=== PATIENT | male | born 1965 | race Caucasian/White ===

== ENCOUNTER 2016-06-02 07:12 | Outpatient (CLI) ==
[2016-06-02 07:55] LABS: EOSINOPHILS # (AUTO) 0.1 K/ul (0.0-0.7); EOSINOPHILS % (AUTO) 4.2 % (0.0-7.0); HEMATOCRIT 39.3 % (42.0-52.0); HEMOGLOBIN 13.6 g/dl (14.0-18.0); LYMPHOCYTES # (AUTO) 0.6 K/uL (0.60-3.4); LYMPHOCYTES % (AUTO) 29.3 (10.0-50.0); MEAN CORPUSCULAR HEMOGLOBIN 31.1 pg (27.0-31.0); MEAN CORPUSCULAR HGB CONC 34.6 (31.8-35.4); MEAN CORPUSCULAR VOLUME 89.7 fl (80.0-94.0); MONOCYTES # (AUTO) 0.2 K/uL (0.4-2.0); MONOCYTES % (AUTO) 7.9 (0-10); NEUTROPHILS # (AUTO) 1.1 K/ul (2.0-6.9); NEUTROPHILS % (AUTO) 58.6; RED BLOOD COUNT 4.38 10^6/ul (4.70-6.10)
[2016-06-02 08:04] LABS: ALBUMIN 3.3 g/dL (3.4-5.0); ALBUMIN/GLOBULIN RATIO 1.03; ANION GAP 11.9; BILIRUBIN,TOTAL 2.97 mg/dL (0.00-1.20); BUN/CREATININE RATIO 14.28; CALCIUM 8.9 mg/dL (8.2-10.2); CREATININE 1.4 mg/dL (0.60-1.10); POTASSIUM 3.9 mmol/L (3.5-5.1); TOTAL PROTEIN 6.5 g/dL (6.4-8.2)
[2016-06-02 08:06] LABS: WHITE BLOOD COUNT 1.91 K/ul (4.2-10.2)
[2016-06-02 08:07] LABS: PLATELET COUNT 24 10^3/uL (140-440)
== END 2016-06-02 07:13 | disposition home or self-care (01) ==
LOC: LAB 07:12
PROVIDERS: ATTEND Internal Medicine Gastroenterology
DX: Z94.4 Liver transplant status (principal); Z79.899 Other long term (current) drug therapy
CPT/HCPCS: 36415; 80053; 80197; 82977; 85025

== ENCOUNTER 2016-06-10 11:00 | Outpatient (RCR) ==
--- NOTE | 2016-05-27 14:32 | RS.OPPTEV2 ---
Date of Note: 05/27/16 Visit #: 1 Date of Evaluation: 05/27/16 Payer Source: Insurance Date of Onset/Injury/Change in Status: 08/19/15 Surgery Performed?: Yes (Left knee scope for meniscal tear) Date of Procedure: 08/19/15 Treatment Diagnosis: Left knee effusion, left knee pain, knee joint stiffness History of Condition/Mechanism of Injury:: Patient reports injurying his knee while golfing in March of last year. States he did not have insurance available to have surgery until August. Reports no prior surgeries to this knee. Pt's job requires him to stand and walk for 10 hr/day. He is having difficulty performing his job due to pain and edema. He has been unable to play golf for a yr due to increased pain when attempting. He states the knee has began to give away now and it has caused him to fall twice in one night last Prior Level of Function.....Patient was independent with: ADL's, Self Care, Work /Vocation, Caregiving, Ambulation/Mobility, Community Integration/Access Functional Limitations: ADL's, Sitting, Standing, Bending, Squatting, Ambulation , Community Access/Integration Treatment Side (optional): Left Medical History Medical History: Arthritis Surgical History Comments:: Liver transplant 2006 Hx Home Medications: Lortab, Lasix Pain Assessment - Pain Description Pain Location: left knee Pain Description: Burning, Throbbing Pain Description: With WBing immediately upon standing Current Pain Intensity: 5-6/10 Worst Pain Intensity: 10/10 Functional Outcome Measure LE Functional Scale: 17 - G Codes & Severity Modifier G Codes & Modifier: na Source of G Code score: na Observation - Observation Inspection: Left knee edema (min-mod) and joint is warm. Gait - Gait Pattern General Gait Pattern Observation: Antalgic Gait, Uneven Ronel, Decrease Weight Bear (L), Decrease Weight Shift (L), Short Stance Time (R) (Pt limits knee flexion for fear of it giving away. Crutch or SC has been recomended for support.), Short Stance Time (L) General Range of Motion: In 90/90 left ham length -28 deg and left -20 deg - Left Knee ROM Left Knee Extension: -6 degrees Left Knee Flexion: 125 (degrees) Knee ROM Limitations: Soft Tissue Tightness, Pain Comments: Min patellar mobility - Left Knee Strength Left Knee Extension: 4- Good- Left Knee Flexion: 4 Good Palpation Palpation Findings: Tenderness (Above and below the knee joint) Balance - Standing Balance Static Standing Balance: Normal Dynamic Standing Balance: Good Interventions - Exercise/Activities/Manual Therapy Exercises/Activities: Pt and PT reviewed his previous HEP of QS and SLR only today. He had pain with all exercises. He is fearful of ex causing pain to increase. Total minutes of Exercise: 10 Manual Therapy: na - Charges Total Direct Minutes: 10 Total Treatment Time: 45 Procedures billed for this date of service:: PT eval (medium) & ex Assessment Assessment: Left knee pain, decreased ROM and LLE weakness greatest in the quads with gait deficits. Patient Education: Education of diagnosis, Body/Joint mechanics, Home Exercise Program, Activity Modification, Education of Plan of Care Rehab Potential: Good Short Term Goals Goal #1: Pt independent with hamstring stretching. Goal to be met by: 06/05/16 Goal #2: Left quad strength 4+/5. Goal to be met by: 06/05/16 Field Service Representative Goals Goal #1: Pt knows HEP and to continue exercises after D/C from therapy. Goal to be met by: 06/12/16 Goal #2: Pt I with crutch or other AD to improve gait pattern and safety. Goal to be met by: 06/12/16 Plan - Treatment to be Provided Procedures: Therapeutic Exercises, Therapeutic Activity, Gait Training, Manual Therapy, Splinting/Taping, Patient Education Modalities: Electrical Stimulation, Ultrasound/Phonophoresis, Class IV Laser, Cryotherapy - Treatment Plan Frequency: 2 X week Duration: 2 weeks ORDER # VISITS AND/OR THROUGH DATE: 06/12/2016 - Treatment Code (1) Left knee pain Qualifiers: Chronicity: chronic Qualified Description: Chronic pain of left knee Qualifier Code(s): (M25.562) Pain in left knee, (G89.29) Other chronic pain (2) Muscle weakness (generalized) Comments: M62.81
--- NOTE | 2016-05-28 12:09 | RS.OPPTDN ---
Subjective Date of Note: 05/28/16 Visit #: 2 Date of Evaluation: 05/27/16 Payer Source: Insurance Treatment Diagnosis: Left knee effusion, left knee pain, knee joint stiffness Current Subjective/complaints:: Patient reports the L knee swells and increases in pain as the work day progresses.He uses ice frequently at home. Pain Assessment - Pain Description Pain Location: left knee Pain Description: Burning, Throbbing Pain Description: With WBing immediately upon standing Current Pain Intensity: 5-6/10 Other Comments regarding Pain:: 0 at rest only Interventions - Exercise/Activities/Manual Therapy Exercises/Activities: 30 mins. total ,multiple reps. of quad sets,SLR's,LAQ's, hip abd/add in supine.Isometrics for quads /hamstrings with knee in terminal extension. Total minutes of Exercise: 30 Manual Therapy: na Total minutes of Manual Therapy: 0 HOME EXERCISE PROGRAM: AP's, Quad sets, heel slides, SLR, SAQ's. SLR/VMO - Charges Total Direct Minutes: 30 Total Treatment Time: 30 Procedures billed for this date of service:: ex 2 Assessment: Patient reportts fatigue only today with exercises,He does report after he is at work around 4 hrs., the swelling occurs and the pain elevates to severe for the rest of the day.He enters clinic with minimal knee flexion on the L ,as he feels the knee at times feels unstable. He is very attentive to recommendations for the care of his knee. Patient Education: Education of diagnosis, Body/Joint mechanics, Home Exercise Program, Home Safety, Activity Modification, Education of Plan of Care Patient demonstrates compliance with HEP?: Yes Short Term Goals Goal #1: Pt independent with hamstring stretching. Goal to be met by: 06/05/16 Goal #2: Left quad strength 4+/5. Goal to be met by: 06/05/16 Goal #3: Left quad strength 4+/5. Goal to be met by: 10/25/15 Audio Visual Equipment Rental Clerk Goals Goal #1: Pt knows HEP and to continue exercises after D/C from therapy. Goal to be met by: 06/12/16 Progress towards goal: Progressing Goal #2: Pt I with crutch or other AD to improve gait pattern and safety. Goal to be met by: 06/12/16 Goal #3: Pt able to perform all home and work activities w/ minimal to no knee pain. Goal to be met by: 11/15/15 Goal #4: Pt to tolerate ambulation long distances without pain or gait deviation . Goal to be met by: 11/15/15 Plan PLAN OF CARE EXPIRES ON:: 06/12/16 ORDER # VISITS AND/OR THROUGH DATE: 06/12/2016 PLAN: Continue Plan of Care
--- NOTE | 2016-06-03 14:29 | RS.OPPTDN ---
Subjective Date of Note: 06/03/16 Visit #: 3 Date of Evaluation: 05/27/16 Payer Source: Insurance Treatment Diagnosis: Left knee effusion, left knee pain, knee joint stiffness Current Subjective/complaints:: Patient reports the knee feels about the same, but he reports exercising the knee 4 times per day,twice in the morning ,and twice later in the day.He enters clinic with antalgic gait. Pain Assessment - Pain Description Pain Location: left knee Pain Description: Burning, Throbbing Current Pain Intensity: 5-6/10 Interventions - Exercise/Activities/Manual Therapy Exercises/Activities: 30 mins. total ,multiple reps. of quad sets,SLR's,LAQ's, hip abd/add in supine.Isometrics for quads /hamstrings with knee in terminal extension. Total minutes of Exercise: 30 Manual Therapy: na Total minutes of Manual Therapy: 0 HOME EXERCISE PROGRAM: AP's, Quad sets, heel slides, SLR, SAQ's. SLR/VMO - Charges Total Direct Minutes: 30 Total Treatment Time: ex 2 Procedures billed for this date of service:: ex 2 Assessment: Patient attempted SAQ,but reports increased pain with each rep., progressed to exercises with knee into extension,to avoid pain .He continues to report increased pain as weight bearing activities increase.He has moderate edema in the L knee today. Patient Education: Education of diagnosis, Body/Joint mechanics, Home Exercise Program, Home Safety, Activity Modification, Education of Plan of Care Patient demonstrates compliance with HEP?: Yes Short Term Goals Goal #1: Pt independent with hamstring stretching. Goal to be met by: 06/05/16 Goal #2: Left quad strength 4+/5. Goal to be met by: 06/05/16 Progress towards Goal:: No Change Goal #3: Left quad strength 4+/5. Goal to be met by: 10/25/15 Senior Living Goals Goal #1: Pt knows HEP and to continue exercises after D/C from therapy. Goal to be met by: 06/12/16 Progress towards goal: Progressing Goal #2: Pt I with crutch or other AD to improve gait pattern and safety. Goal to be met by: 06/12/16 Goal #3: Pt able to perform all home and work activities w/ minimal to no knee pain. Goal to be met by: 11/15/15 Progress towards goal: No Change Goal #4: Pt to tolerate ambulation long distances without pain or gait deviation . Goal to be met by: 11/15/15 Progress towards goal: No Change Plan PLAN OF CARE EXPIRES ON:: 06/12/16 ORDER # VISITS AND/OR THROUGH DATE: 06/12/2016 PLAN: Continue Plan of Care
--- NOTE | 2016-06-10 12:06 | RS.OPPTDN ---
Subjective Date of Note: 06/04/16 Visit #: 4 Date of Evaluation: 05/27/16 Payer Source: Insurance Treatment Diagnosis: Left knee effusion, left knee pain, knee joint stiffness Current Subjective/complaints:: Reports feeling more rested today ,has had a good night's sleep.The knee feels about the same.He continues to do his HEP regularly. Pain Assessment - Pain Description Pain Location: left knee Pain Description: Sharp, Dull, Aching, Chronic Current Pain Intensity: not rated today Interventions - Exercise/Activities/Manual Therapy Exercises/Activities: 35 mins. total ,multiple reps. of quad sets,SLR's,LAQ's, hip abd/add in supine.Isometrics for quads /hamstrings with knee in terminal extension. Total minutes of Exercise: 35 Manual Therapy: na Total minutes of Manual Therapy: 0 HOME EXERCISE PROGRAM: AP's, Quad sets, heel slides, SLR, SAQ's. SLR/VMO - Charges Total Direct Minutes: 35 Total Treatment Time: 35 Procedures billed for this date of service:: ex2 Assessment: No significant change today,but continues to be willing to try all aspects of therapy,and achieve highest level of function.His job requires lng periods of being on his feet.He reports using ice frequently at home on a daily basis to control edema. Patient Education: Education of diagnosis, Body/Joint mechanics, Home Exercise Program, Home Safety, Activity Modification, Education of Plan of Care Patient demonstrates compliance with HEP?: Yes Short Term Goals Goal #1: Pt independent with hamstring stretching. Goal to be met by: 06/05/16 (N/A) Goal #2: Left quad strength 4+/5. Goal to be met by: 06/05/16 Progress towards Goal:: No Change Goal #3: Left quad strength 4+/5. Goal to be met by: 10/25/15 Progress towards Goal:: No Change Product Craftsman Goals Goal #1: Pt knows HEP and to continue exercises after D/C from therapy. Goal to be met by: 06/12/16 Progress towards goal: Progressing Goal #2: Pt I with crutch or other AD to improve gait pattern and safety. Goal to be met by: 06/12/16 Progress towards goal: Progressing Goal #3: Pt able to perform all home and work activities w/ minimal to no knee pain. Goal to be met by: 11/15/15 Progress towards goal: No Change Goal #4: Pt to tolerate ambulation long distances without pain or gait deviation . Goal to be met by: 11/15/15 Progress towards goal: No Change Plan PLAN OF CARE EXPIRES ON:: 06/12/16 ORDER # VISITS AND/OR THROUGH DATE: 06/12/2016 PLAN: Continue Plan of Care
--- NOTE | 2016-06-10 15:45 | RS.OPPTDN ---
Subjective Date of Note: 06/10/16 Visit #: 5 Date of Evaluation: 05/27/16 Payer Source: Insurance Treatment Diagnosis: Left knee effusion, left knee pain, knee joint stiffness Current Subjective/complaints:: Patient reports the knee is slightly better today,in regards to pain level,but has difficulty with sit to stand after prolonged riding in a car or sitting at work/home. Pain Assessment - Pain Description Pain Location: left knee Pain Description: Sharp, Dull, Aching, Chronic Pain Description: Sharp pain with WBing immediately upon standing Current Pain Intensity: 310 Interventions - Exercise/Activities/Manual Therapy Exercises/Activities: 45 mins. total ,5 reps. at each level of resistance on leg press with ROM between full knee extension and 20-25 degrees flexion , beginning with 75# ,up to 225# with both LE's.Single leg press with L LE ,05/27 @ 75 #.Ended session with 3/15 reps. using black theraband for hamstring curls.HEP review,including joint protection and pain control. Total minutes of Exercise: 45 Manual Therapy: na Total minutes of Manual Therapy: 0 HOME EXERCISE PROGRAM: AP's, Quad sets, heel slides, SLR, SAQ's. SLR/VMO - Charges Total Direct Minutes: 45 Total Treatment Time: 45 Procedures billed for this date of service:: ex 3 Assessment: Patient tolerates PRE's well today ,but continues to have pain with sit to stand.The PRE's were done in a shortened ROM to protect the knee joint. Patient Education: Education of diagnosis, Body/Joint mechanics, Home Exercise Program, Home Safety, Activity Modification, Education of Plan of Care Patient demonstrates compliance with HEP?: Yes Short Term Goals Goal #1: Pt independent with hamstring stretching. Goal to be met by: 06/05/16 (N/A) Goal #2: Left quad strength 4+/5. Goal to be met by: 06/05/16 Progress towards Goal:: Progressing Goal #3: Left quad strength 4+/5. Goal to be met by: 10/25/15 Progress towards Goal:: Progressing Label Stitcher Goals Goal #1: Pt knows HEP and to continue exercises after D/C from therapy. Goal to be met by: 06/12/16 Progress towards goal: Met Goal #2: Pt I with crutch or other AD to improve gait pattern and safety. Goal to be met by: 06/12/16 Progress towards goal: Partially Met Goal #3: Pt able to perform all home and work activities w/ minimal to no knee pain. Goal to be met by: 11/15/15 Progress towards goal: Progressing Goal #4: Pt to tolerate ambulation long distances without pain or gait deviation . Goal to be met by: 11/15/15 (antalgia increases as the distance increases) Progress towards goal: Progressing Plan PLAN OF CARE EXPIRES ON:: 06/12/16 ORDER # VISITS AND/OR THROUGH DATE: 06/12/2016 PLAN: Plan for Discharge (Review HEP,safety,joint protection at tomorrow's visit.)
== END 2016-06-12 ==
PROVIDERS: ATTEND Orthopaedic Surgery Sports Medicine
DX: M25.562 Pain in left knee (principal); G89.29 Other chronic pain; M62.81 Muscle weakness (generalized)

== ENCOUNTER 2016-10-06 07:01 | Outpatient (CLI) ==
[2016-10-06 07:52] LABS: ALBUMIN 3.4 g/dL (3.4-5.0); ALBUMIN/GLOBULIN RATIO 1.03; ANION GAP 12.1; BILIRUBIN,TOTAL 3.13 mg/dL (0.00-1.20); BUN/CREATININE RATIO 13.44; CREATININE 1.19 mg/dL (0.60-1.10); EOSINOPHILS # (AUTO) 0.1 K/ul (0.0-0.7); EOSINOPHILS % (AUTO) 3.3 % (0.0-7.0); HEMATOCRIT 37.3 % (42.0-52.0); IMMATURE GRANULOCYTE % (AUTO) 0.5 % (0.0-5.0); LYMPHOCYTES # (AUTO) 0.6 K/uL (0.60-3.4); LYMPHOCYTES % (AUTO) 31.1 (10.0-50.0); MEAN CORPUSCULAR HEMOGLOBIN 31.1 pg (27.0-31.0); MEAN CORPUSCULAR HGB CONC 34.9 (31.8-35.4); MEAN CORPUSCULAR VOLUME 89.2 fl (80.0-94.0); MONOCYTES # (AUTO) 0.2 K/uL (0.4-2.0); MONOCYTES % (AUTO) 10.9 (0-10); NEUTROPHILS % (AUTO) 54.2; POTASSIUM 4.1 mmol/L (3.5-5.1); RED BLOOD COUNT 4.18 10^6/ul (4.70-6.10); TOTAL PROTEIN 6.7 g/dL (6.4-8.2)
[2016-10-06 08:21] LABS: PLATELET COUNT 26 10^3/uL (140-440); WHITE BLOOD COUNT 1.83 K/ul (4.2-10.2)
[2016-10-07 08:15] LABS: GAMMA GLUTAMYL TRANSFERASE 135 IU/L (0-65)
== END 2016-10-06 07:02 | disposition home or self-care (01) ==
LOC: LAB 07:01
PROVIDERS: ATTEND Internal Medicine Gastroenterology
DX: Z94.4 Liver transplant status (principal); Z79.899 Other long term (current) drug therapy
CPT/HCPCS: 36415; 80053; 80197; 82977; 85025

== ENCOUNTER 2016-12-11 09:00 | Outpatient (RCR) ==
--- NOTE | 2016-12-10 14:00 | RS.OPPTEV2 ---
Date of Note: 12/09/16 Visit #: 1 Date of Evaluation: 12/09/16 Payer Source: Insurance Treatment Diagnosis: Left knee pain, knee joint stiffness, joint effusion History of Condition/Mechanism of Injury:: Patient reports injurying his knee while golfing in March of 2015. He had left knee arthroscopy in August 2015. He attended therapy following surgery and again this May 2016 for strengthening. He continues to have left knee pain, stiffness, and swelling. He has received 2 different sets of injections, the first was below the knee joint. The most recent injections were into the distal quads. He states those injections helped for about 3-4 weeks, then the knee symptoms returned as before. Prior Level of Function.....Patient was independent with: ADL's, Self Care, Work /Vocation, Caregiving, Ambulation/Mobility, Community Integration/Access Functional Limitations: ADL's, Sitting, Standing, Bending, Squatting, Ambulation , Community Access/Integration Current Subjective/complaints:: Patient reports continued left knee stiffness and aching. States his symptoms are worse in the morning and after any sitting , when he first stands and tries to walk. States the knee is very stiff and sore. He has to move it to warm it up before he can walk without too much discomfort. Reports he has fallen due to knee pain when standing up from sitting. States he is still unable to ascend/descend a flight of stairs. He cannot even lead with the left leg to ascend one step. He is unable to play golf due to pain and stiffness in the knee. His job requires him to stand and walk for a 10 hour shift. States prolonged walking causes increased knee pain, which effects his walking. Treatment Side (optional): Left Medical History Medical History: Arthritis Surgical History Comments:: Liver transplant 2006 Hx Home Medications: Lortab, Lasix Patient's Goals: His goal is to get relief of left knee stiffness and pain. Pain Assessment - Pain Description Pain Location: left knee Pain Description: Aching Current Pain Intensity: not quantified Worst Pain Intensity: not quantified Functional Outcome Measure LE Functional Scale: 26 (=67.5% impairment) - G Codes & Severity Modifier G Codes & Modifier: NA Source of G Code score: NA Gait - Gait Pattern Gait Comments: Patient ambulates without an assistive device with decreased stance on the left LE. He demonstrates decreased left hip and knee flexion on the left. Demonstrates decreased toe off. - Left Knee ROM Left Knee Extension: -12 degrees from full extension Left Knee Flexion: 125 (degrees AROM) Knee ROM Limitations: Soft Tissue Tightness - Right Knee ROM Right Knee Extension: full extension Right Knee Flexion: 140 (degrees AROM) - Left Knee Strength Left Knee Extension: 5 Normal Left Knee Flexion: 5 Normal - Right Knee Strength Right Knee Extension: 5 Normal Right Knee Flexion: 5 Normal - Special Tests Knee Anterior Drawer Test: Negative Left, Negative Right Knee Posterior Drawer Test: Negative Left, Negative Right Knee Valgus Stress Test: Negative Left, Negative Right Knee Varus Stress Test: Negative Left, Negative Right Knee Apolinar Test: Negative Left, Negative Right Palpation Comments:: Patient reports no tenderness with palpation throughout the left knee joint. Sensation - Sensation Right Lower Extremity: Intact/Normal Left Lower Extremity: Intact/Normal Additional Comments: Additional Comments: Left heelcords and Hamstrings are tighter, compared to the right. Left DF to neutral, right 10 degrees past neutral. Interventions - Exercise/Activities/Manual Therapy Exercises/Activities: Patient instructed in heelcord, HS, and rectus femoris stretch. Manual Therapy: na HOME EXERCISE PROGRAM: heelcord, HS, and rectus femoris stretch. - Charges Total Direct Minutes: 45 mins Total Treatment Time: 45 mins Procedures billed for this date of service:: AMANUEL Mata Assessment Assessment: Patient presents to therapy with a diagnosis of left knee osteoarthritis and 14 months s/p arthroscopy. He reports continued left knee pain, stiffness, and swelling. He describes limited tolerance for walking and standing. Upon evaluation, he exhibits tightness in the left hip flexors, HS, and heelcords. Demonstrates 5/5 muscle strength of the left LE. He demonstrates potential to benefit from addressing tight muscles of the left LE and strengthening of the quads to improved knee joint mechanics and stability. Patient Education: Education of diagnosis, Home Exercise Program, Education of Plan of Care Rehab Potential: Good Short Term Goals Goal #1: Pt independent with stretching exercises. Goal to be met by: 12/24/16 (N/A) Goal #2: Left knee active extension to -3 degrees. Goal to be met by: 12/24/16 Goal #3: Left ankle DF to 10 degrees past neutral. Goal to be met by: 12/24/16 Manager Hardware Goals Goal #1: Pt knows HEP and to continue exercises after D/C from therapy. Goal to be met by: 01/04/17 Goal #2: Pt will amb. community distances without gait deviation. Goal to be met by: 01/04/17 Goal #3: Pt able to perform all home and work activities w/ minimal to no knee pain. Goal to be met by: 01/04/17 Goal #4: Pt able to ascend/descend 5 stairs with minimal difficulty or pain. Goal to be met by: 01/04/17 Plan - Treatment to be Provided Procedures: Therapeutic Exercises, Therapeutic Activity, Patient Education Modalities: No Modalities - Treatment Plan Frequency: 2-3 X week Duration: 3 weeks ORDER # VISITS AND/OR THROUGH DATE: 01/04/17 - Treatment Code (1) Left knee pain Code(s): M25.562 - PAIN IN LEFT KNEE Qualifiers: Chronicity: chronic Qualified Code(s): M25.562 - Pain in left knee (2) Stiffness of left knee Code(s): M25.662 - STIFFNESS OF LEFT KNEE, NOT ELSEWHERE CLASSIFIED Comments: M25.662 (3) S/P left knee arthroscopy Code(s): Z98.89 - OTHER SPECIFIED POSTPROCEDURAL STATES * DO NOT USE * Comments: Z98.890 (4) Primary osteoarthritis of left knee Code(s): M17.12 - UNILATERAL PRIMARY OSTEOARTHRITIS, LEFT KNEE Comments: M17.12
--- NOTE | 2016-12-11 10:06 | RS.OPPTDN ---
Subjective Date of Note: 12/11/16 Visit #: 2 Date of Evaluation: 12/09/16 Payer Source: Insurance Treatment Diagnosis: Left knee pain, knee joint stiffness, joint effusion Current Subjective/complaints:: Patient c/o stiffness while driving to/from work (about 1:[address]) plus working 10 hour shift. He says no matter what he does (ex, stretching) his knee remains stiff and does not get relief from current pain medication. He says his knee "gave out" last night and fell onto the L knee. Reports falling often. States he performs exercises often to prep the knee for walking to work once out of his car. Pain Assessment - Pain Description Pain Location: left knee Pain Description: Aching Pain Description: Sharp pain with WBing immediately upon standing Current Pain Intensity: not quantified Interventions - Exercise/Activities/Manual Therapy Exercises/Activities: Patient receives passive hamstring and heel cord stretching in supine. L hip flexer stretching in sidelying multiple reps. Patient performs QS, SLR, and SLR for VMO x 10. Biodex for isometric program @ 80 and 60 degrees of flexion x 5 reps. Also, Isokinetics at 45 and 60 degrees/ sec 5 reps x 2. Total minutes of Exercise: 35 Manual Therapy: na HOME EXERCISE PROGRAM: heelcord, HS, and rectus femoris stretch. - Charges Total Direct Minutes: 35 Total Treatment Time: 35 Procedures billed for this date of service:: ex2 Assessment: Patient having recent falls related to inflexibility and weakness to the L LE. Patient demo avg 91 ft/pounds for the quads (L) and 61 ft/pounds HS for Isometric program, while avg 45 ft/pounds for quads and 48 ft/pounds for HS during Isokinetic program using 60 degrees/sec. Patient Education: Education of diagnosis, Body/Joint mechanics, Home Exercise Program, Home Safety, Activity Modification, Education of Plan of Care Patient demonstrates compliance with HEP?: Yes Short Term Goals Goal #1: Pt independent with stretching exercises. Goal to be met by: 12/24/16 (N/A) Progress towards Goal:: Progressing Goal #2: Left knee active extension to -3 degrees. Goal to be met by: 12/24/16 Goal #3: Left ankle DF to 10 degrees past neutral. Goal to be met by: 12/24/16 Long-Term Goals Goal #1: Pt knows HEP and to continue exercises after D/C from therapy. Goal to be met by: 01/04/17 Goal #2: Pt will amb. community distances without gait deviation. Goal to be met by: 01/04/17 Goal #3: Pt able to perform all home and work activities w/ minimal to no knee pain. Goal to be met by: 01/04/17 Goal #4: Pt able to ascend/descend 5 stairs with minimal difficulty or pain. Goal to be met by: 01/04/17 Plan PLAN OF CARE EXPIRES ON:: 01/04/17 ORDER # VISITS AND/OR THROUGH DATE: 01/04/17 PLAN: Progress Exercises (Patient should benefit from continued passive stretching and HEP as well as quad strengthening in dept)
== END 2016-12-12 ==
PROVIDERS: ATTEND Orthopaedic Surgery Sports Medicine
DX: M17.12 Unilateral primary osteoarthritis, left knee (principal)

== ENCOUNTER 2016-12-15 06:46 | Outpatient (CLI) ==
[2016-12-15 07:30] LABS: ALBUMIN/GLOBULIN RATIO 0.97; ANION GAP 10.2; BILIRUBIN,TOTAL 2.63 mg/dL (0.00-1.20); BUN/CREATININE RATIO 17.2; CALCIUM 8.7 mg/dL (8.2-10.2); CREATININE 0.93 mg/dL (0.60-1.10); POTASSIUM 4.2 mmol/L (3.5-5.1); TOTAL PROTEIN 6.1 g/dL (6.4-8.2)
[2016-12-15 07:31] LABS: HEMATOCRIT 36.2 % (42.0-52.0); HEMOGLOBIN 12.5 g/dl (14.0-18.0); MEAN CORPUSCULAR HEMOGLOBIN 30.6 pg (27.0-31.0); MEAN CORPUSCULAR HGB CONC 34.5 (31.8-35.4); MEAN CORPUSCULAR VOLUME 88.7 fl (80.0-94.0); RED BLOOD COUNT 4.08 10^6/ul (4.70-6.10)
[2016-12-15 08:04] LABS: PLATELET COUNT 28 10^3/uL (140-440); WHITE BLOOD COUNT 1.13 K/ul (4.2-10.2)
[2016-12-15 08:05] LABS: ANISOCYTOSIS NOT PRESENT (NOT PRESENT)
[2016-12-16 07:21] LABS: GAMMA GLUTAMYL TRANSFERASE 127 IU/L (0-65)
== END 2016-12-15 06:47 | disposition home or self-care (01) ==
LOC: LAB 06:46
PROVIDERS: ATTEND Internal Medicine Gastroenterology
DX: Z94.4 Liver transplant status (principal); Z79.899 Other long term (current) drug therapy
CPT/HCPCS: 36415; 80053; 80197; 82977; 85007; 85025

== ENCOUNTER 2017-03-02 07:13 | Outpatient (CLI) ==
[2017-03-02 07:41] LABS: HEMATOCRIT 41.9 % (42.0-52.0); HEMOGLOBIN 14.3 g/dl (14.0-18.0); MEAN CORPUSCULAR HEMOGLOBIN 30.7 pg (27.0-31.0); MEAN CORPUSCULAR HGB CONC 34.1 (31.8-35.4); MEAN CORPUSCULAR VOLUME 89.9 fl (80.0-94.0); RED BLOOD COUNT 4.66 10^6/ul (4.70-6.10)
[2017-03-02 08:02] LABS: ALBUMIN 3.1 g/dL (3.4-5.0); ALBUMIN/GLOBULIN RATIO 0.89; ANION GAP 11.2; BILIRUBIN,TOTAL 3.2 mg/dL (0.00-1.20); BUN/CREATININE RATIO 12.87; CALCIUM 8.8 mg/dL (8.2-10.2); CREATININE 1.01 mg/dL (0.60-1.10); POTASSIUM 4.2 mmol/L (3.5-5.1); TOTAL PROTEIN 6.6 g/dL (6.4-8.2)
[2017-03-02 08:19] LABS: PLATELET COUNT 27 10^3/uL (140-440); WHITE BLOOD COUNT 1.54 K/ul (4.2-10.2)
[2017-03-02 08:24] LABS: ANISOCYTOSIS NOT PRESENT (NOT PRESENT)
[2017-03-03 07:22] LABS: GAMMA GLUTAMYL TRANSFERASE 172 IU/L (0-65)
== END 2017-03-02 07:14 | disposition home or self-care (01) ==
LOC: LAB 07:13
PROVIDERS: ATTEND Internal Medicine Gastroenterology
DX: Z94.4 Liver transplant status (principal); Z79.899 Other long term (current) drug therapy
CPT/HCPCS: 36415; 80053; 80197; 82977; 85007; 85025

== ENCOUNTER 2017-06-18 06:44 | Outpatient (CLI) | END 2017-06-18 06:45 | disposition home or self-care (01) | LOC: LAB 06:44 | PROVIDERS: ATTEND Internal Medicine Gastroenterology | DX: Z94.4 Liver transplant status (principal); Z79.899 Other long term (current) drug therapy | CPT/HCPCS: 36415; 80053; 80197; 82977; 85007; 85025 ==

== ENCOUNTER 2017-08-18 06:38 | Outpatient (CLI) | END 2017-08-18 06:39 | disposition home or self-care (01) | LOC: LAB 06:38 | PROVIDERS: ATTEND Internal Medicine Gastroenterology | DX: Z94.4 Liver transplant status (principal) | CPT/HCPCS: 36415; 87522 ==

== ENCOUNTER 2017-08-27 07:03 | Outpatient (CLI) | END 2017-08-27 07:04 | disposition home or self-care (01) | LOC: LAB 07:03 | PROVIDERS: ATTEND Internal Medicine Gastroenterology | DX: Z94.4 Liver transplant status (principal); Z79.899 Other long term (current) drug therapy | CPT/HCPCS: 36415; 80053; 80197; 82977; 85025; 85610 ==

== ENCOUNTER 2017-09-27 06:43 | Outpatient (CLI) | END 2017-09-27 06:44 | disposition home or self-care (01) | LOC: LAB 06:43 | PROVIDERS: ATTEND Internal Medicine Gastroenterology | DX: Z94.4 Liver transplant status (principal); Z79.899 Other long term (current) drug therapy | CPT/HCPCS: 36415; 80053; 80197; 82977; 85025; 85610 ==

== ENCOUNTER 2017-10-26 06:39 | Outpatient (CLI) | END 2017-10-26 06:40 | disposition home or self-care (01) | LOC: LAB 06:39 | PROVIDERS: ATTEND Internal Medicine Gastroenterology | DX: Z94.4 Liver transplant status (principal); Z79.899 Other long term (current) drug therapy; B18.2 Chronic viral hepatitis C | CPT/HCPCS: 36415; 80053; 80197; 85007; 85025; 85610; 87522 ==

== ENCOUNTER 2017-11-25 07:09 | Outpatient (CLI) | END 2017-11-25 07:10 | disposition home or self-care (01) | LOC: LAB 07:09 | PROVIDERS: ATTEND Internal Medicine Gastroenterology | DX: Z94.4 Liver transplant status (principal); Z79.899 Other long term (current) drug therapy; B18.2 Chronic viral hepatitis C | CPT/HCPCS: 36415; 80053; 80197; 85025; 85610 ==

== ENCOUNTER 2017-12-22 06:40 | Outpatient (CLI) | END 2017-12-22 06:41 | disposition home or self-care (01) | LOC: LAB 06:40 | PROVIDERS: ATTEND Internal Medicine Gastroenterology | DX: Z94.4 Liver transplant status (principal); Z79.899 Other long term (current) drug therapy | CPT/HCPCS: 36415; 80053; 80197; 82306; 84446; 85007; 85025; 85610; 87522 ==

== ENCOUNTER 2018-01-20 06:40 | Outpatient (CLI) | END 2018-01-20 06:41 | disposition home or self-care (01) | LOC: LAB 06:40 | PROVIDERS: ATTEND Internal Medicine Gastroenterology | DX: Z94.4 Liver transplant status (principal); Z79.899 Other long term (current) drug therapy; B18.2 Chronic viral hepatitis C | CPT/HCPCS: 36415; 80053; 80197; 85007; 85025; 85610 ==

== ENCOUNTER 2018-03-17 12:29 | Outpatient (CLI) | END 2018-03-17 12:30 | disposition home or self-care (01) | LOC: LAB 12:29 | PROVIDERS: ATTEND Internal Medicine Gastroenterology | DX: Z94.4 Liver transplant status (principal); Z79.899 Other long term (current) drug therapy | CPT/HCPCS: 36415; 80053; 80197; 85025; 85610 ==

== ENCOUNTER 2018-04-05 06:55 | Outpatient (CLI) | END 2018-04-05 06:56 | disposition home or self-care (01) | LOC: LAB 06:55 | PROVIDERS: ATTEND Internal Medicine Gastroenterology | DX: Z94.4 Liver transplant status (principal); Z79.899 Other long term (current) drug therapy; B18.2 Chronic viral hepatitis C; Z12.5 Encounter for screening for malignant neoplasm of prostate | CPT/HCPCS: 36415; 80053; 80197; 85007; 85025; 85610; 87522 ==

== ENCOUNTER 2018-05-04 06:56 | Outpatient (CLI) | END 2018-05-04 06:57 | disposition home or self-care (01) | LOC: LAB 06:56 | PROVIDERS: ATTEND Internal Medicine Gastroenterology | DX: Z94.4 Liver transplant status (principal); Z79.899 Other long term (current) drug therapy; K74.60 Unspecified cirrhosis of liver; R18.8 Other ascites | CPT/HCPCS: 36415; 80053; 80197; 85007; 85025; 85610 ==

== ENCOUNTER 2018-05-31 07:43 | Outpatient (CLI) | END 2018-05-31 07:44 | disposition home or self-care (01) | LOC: LAB 07:43 | PROVIDERS: ATTEND Internal Medicine Gastroenterology | DX: Z94.4 Liver transplant status (principal); Z79.899 Other long term (current) drug therapy | CPT/HCPCS: 36415; 80053; 80197; 85007; 85025; 85610 ==

== ENCOUNTER 2018-06-06 07:00 | Outpatient (CLI) | END 2018-06-06 07:01 | disposition home or self-care (01) | LOC: LAB 07:00 | PROVIDERS: ATTEND Internal Medicine Gastroenterology | DX: Z94.4 Liver transplant status (principal); Z79.899 Other long term (current) drug therapy | CPT/HCPCS: 36415; 80053; 80197; 85007; 85025; 85610 ==

== ENCOUNTER 2018-06-20 08:28 | Outpatient (CLI) | END 2018-06-20 08:29 | disposition home or self-care (01) | LOC: LAB 08:28 | PROVIDERS: ATTEND Internal Medicine Gastroenterology | DX: Z94.4 Liver transplant status (principal); Z79.899 Other long term (current) drug therapy | CPT/HCPCS: 36415; 80053; 80197; 85007; 85025; 85610 ==

== ENCOUNTER 2018-07-04 06:42 | Outpatient (CLI) | END 2018-07-04 06:43 | disposition home or self-care (01) | LOC: LAB 06:42 | PROVIDERS: ATTEND Internal Medicine Gastroenterology | DX: Z94.4 Liver transplant status (principal); Z79.899 Other long term (current) drug therapy | CPT/HCPCS: 36415; 80053; 80197; 85008; 85025; 85610 ==

== ENCOUNTER 2018-07-21 06:53 | Outpatient (CLI) | END 2018-07-21 06:54 | disposition home or self-care (01) | LOC: LAB 06:53 | PROVIDERS: ATTEND Internal Medicine Gastroenterology | DX: Z94.4 Liver transplant status (principal); Z79.899 Other long term (current) drug therapy | CPT/HCPCS: 36415; 80053; 80197; 85007; 85025; 85610 ==

== ENCOUNTER 2018-08-04 06:45 | Outpatient (CLI) | END 2018-08-04 06:46 | disposition home or self-care (01) | LOC: LAB 06:45 | PROVIDERS: ATTEND Internal Medicine Gastroenterology | DX: Z94.4 Liver transplant status (principal); Z79.899 Other long term (current) drug therapy | CPT/HCPCS: 36415; 80053; 80197; 85007; 85025; 85610 ==

== ENCOUNTER 2018-09-07 06:36 | Outpatient (CLI) | END 2018-09-07 06:37 | disposition home or self-care (01) | LOC: LAB 06:36 | PROVIDERS: ATTEND Internal Medicine Gastroenterology | DX: Z94.4 Liver transplant status (principal); Z79.899 Other long term (current) drug therapy | CPT/HCPCS: 36415; 80053; 80197; 85025; 85610 ==